=== PATIENT | male | born 1955 | race Caucasian/White ===

== ENCOUNTER 2018-11-22 13:45 | Outpatient (RCR) | payer OTHER, SELFPAY ==
--- NOTE | 2018-10-29 16:20 | PT.OIE ---
Current Diagnoses Strain of muscle, fascia and tendon of lower back, initial encounter (10/29/18) Past Medical History (Last Reviewed 10/25/18 @ 15:17 by Arian Varela MD) Essential hypertension (Chronic) Mixed hyperlipidemia (Chronic) Psoriasis (Chronic 10/27/05) Psoriatic arthritis (Chronic) Restless legs syndrome (Chronic 06/10/11) Oral herpes simplex infection (Chronic 05/17/16) Elevated LFTs (Chronic 06/10/11) Provider Visit Care Team Role Provider Type Arian Varela MD Primary Care Provider Physician Specialty: Internal Medicine Address: [address] [place] [address] Email: [email or web address] Forte PA-C Attending Provider Advanced Retail Area Manager Specialty: Medical Address: [address] [place] [address], [facility] Email: Physical Therapy Initial Evaluation PT-OP-A Visit Information Start: 10/29/18 12:57 Freq: Status: Active Protocol: Document 10/29/18 13:00 AMB (Rec: 10/29/18 15:46 AMB [email or web address]) Out-Patient Physical Therapy Visit Information Visit Information Visit Type Initial Evaluation Visit Start Time 13:00 Visit Stop Time 13:45 Total Visit Minutes 45 Visit Number 1 Evaluation Information Evaluation Date 10/29/18 PT-OP-B Current Condition Start: 10/29/18 12:57 Freq: Status: Active Protocol: Document 10/29/18 13:00 AMB (Rec: 10/29/18 15:46 AMB [email or web address]) Current Condition History of Current Condition Onset Date September 2018 Current Complaints R sided low back pain History of Current Condition The patient reports R sided low back pain after a busy day at home. He thinks the thing that may have caused it was trying to back up his motorcycle while the motorcycle was off and he was sitting on it. It has been slowly improving, but is still limiting his ability to bend forward. 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 He does not report he needs to lift anything heavy at work, but he has not been on his motorcycle since the pain started. Treatment Goals Patient/Caregiver Goals Decrease back pain, lean forward without pain Personal Factors Other Personal Factors That May Effect Bilateral rotator cuff surgery Therapy/Recovery history, umbilical hernia repair, PT-OP-C Subjective Start: 10/29/18 12:57 Freq: Status: Active Protocol: Document 10/29/18 13:00 AMB (Rec: 10/29/18 15:46 AMB [email or web address]) Patient Questionnaires Oswestry Low Back Index Oswestry Score 12 Oswestry Impairment 1 to 19% Impaired (Score 1-19) OP-PT Pain Assessment Pain Assessment Grid Paper Pain Assessment Grid Completed Yes Location Right Lower Back Pain Location Details sharp Intensity 2 PT-OP-J Posture/Palpation/Skin Start: 10/29/18 12:57 Freq: Status: Active Protocol: Document 10/29/18 13:00 AMB (Rec: 10/29/18 16:00 AMB [email or web address]) Palpation Assessment Location One Palpation Location R low back Palpation Details Tenderness at bilateral PSIS with palpation, worse on the R . Mild tenderness with PA at L5, but not in upper L spine. Tenderness at R paraspinals, but not QL. PT-OP-K Range of Motion Start: 10/29/18 12:57 Freq: Status: Active Protocol: Document 10/29/18 13:00 AMB (Rec: 10/29/18 16:00 AMB [email or web address]) Lumbar Spine Range of Motion Lumbar Spine Active Degrees Testing Position Standing Flexion 50 Extension 30 Lateral Flexion Left 15 Lateral Flexion Right 10 ROM Limitations Pain Hip Goniometric Range of Motion Hip ROM Limitations Comments Hip rotation limited bilaterally, hip flexion limited by pinching on the R, good hamstring flexibility bilaterally. PT-OP-L Special Tests Start: 10/29/18 12:57 Freq: Status: Active Protocol: Document 10/29/18 13:00 AMB (Rec: 10/29/18 16:00 AMB [email or web address]) Special Tests Lumbar Spine Special Tests Straight Leg Raise Test Results negative PT-OP-M Strength Start: 10/29/18 12:57 Freq: Status: Active Protocol: Document 10/29/18 13:00 AMB (Rec: 10/29/18 16:00 AMB [email or web address]) Hip Strength Hip Manual Muscle Testing Right Flexion (L2) 4+ Good+ Extension (S1) 4 Good Abduction 4+ Good+ Left Flexion (L2) 4+ Good+ Extension (S1) 4+ Good+ Abduction 5 Normal Knee Strength Knee Manual Muscle Testing Right Flexion (S2) 5 Normal Extension (L3) 5 Normal Left Flexion (S2) 5 Normal Extension (L3) 5 Normal PT-OP-Q Treatments Start: 18 12:57 Freq: Status: Active Protocol: Document 10/29/18 13:00 AMB (Rec: 10/29/18 16:00 AMB [email or web address]) Therapeutic Exercises Supine Exercises 1 Supine Exercise Name SLR Side right Reps/Minutes 2x10 Comments c TrA stabilization PT-OP-R Modalities Start: 10/29/18 12:57 Freq: Status: Active Protocol: Document 10/29/18 13:00 AMB (Rec: 10/29/18 16:00 AMB [email or web address]) Electric Stimulation Electric Stimulation Interferential Current (IFC) Body Location R low back Duration (Minutes) 15 PT-OP-T Assessment and Plan Start: 10/29/18 12:57 Freq: Status: Active Protocol: Document 10/29/18 13:00 AMB (Rec: 10/29/18 16:19 AMB [email or web address]) Physical Therapy Assessment Rehab Potential Rehabilitation Potential Good Evaluation Complexity Number of Personal Factors/Comorbidities 1-2 Number of Body Systems Impaired 3 Clinical Presentation at Evaluation Stable Impairments Impairments Functional Activities Pain Posture Goals Two Impairment Positional tolerance Short Term Goal (STG) The patient will stand at work for 30 minutes without back pain. STG Duration 4 weeks Sausage Maker Goal (LTG) The patient will sit at his desk for 1 hour without back pain. LTG Duration 8 weeks One Impairment Range of motion Short Term Goal (STG) The patient will bend forward to tie his shoe without back pain. STG Duration 4 weeks Nursing Home Goal (LTG) The patient will improve his lumbar sidebending to bilaterally 15 degrees without an increase in pain. LTG Duration 8 weeks Assessment Summary Assessment The patient presents with right lumbar strain. He is actually quite flexible in his muscles (he was a gymnast in high school), but his joints are stiff (he does have psoriatic arthritis). He has poor core control and will benefit from both manual therapy and core stabilization to help his back heal quickly . Physical Therapy Plan Frequency and Duration Frequency of Treatment 2x/Week Duration of Treatment 8 weeks Plan of Care Start Date 10/29/18 Plan of Care End Date 12/24/17 Therapeutic Interventions Therapeutic Interventions Gait Training Home Exercise Program Joint Mobilizations Manual Therapy Neuromuscular Re-education Self-Care/Home Management Soft Tissue Mobilization Therapeutic Activities Therapeutic Exercises Modalities Cold Pack/Ice Massage Electric Stimulation Hot Packs Ultrasound Next Visit Focus/Plan Next Note Type Treatment Note Next Visit Plan Progress core stabilization. manual therapy to progress spinal ROM.
--- NOTE | 2018-10-29 16:21 | PT.OPPOC ---
Current Diagnoses Strain of muscle, fascia and tendon of lower back, initial encounter (10/29/18) Provider Visit Care Team Role Provider Type Arian Varela MD Primary Care Provider Physician Specialty: Internal Medicine Address: [address] [place] [address], [id number] Email: [email or web address] Forte PA-C Attending Provider Advanced Welding Supervisor Specialty: Medical Address: [address] [place] [address], [id number] Email: Plan Of Care PT-OP-T Assessment and Plan Start: 10/29/18 12:57 Freq: Status: Active Protocol: Document 10/29/18 13:00 AMB (Rec: 10/29/18 16:19 AMB [email or web address]) Physical Therapy Assessment Rehab Potential Rehabilitation Potential Good Evaluation Complexity Number of Personal Factors/Comorbidities 1-2 Number of Body Systems Impaired 3 Clinical Presentation at Evaluation Stable Impairments Impairments Functional Activities Pain Posture Goals Two Impairment Positional tolerance Short Term Goal (STG) The patient will stand at work for 30 minutes without back pain. STG Duration 4 weeks Tea Leaf Reader Goal (LTG) The patient will sit at his desk for 1 hour without back pain. LTG Duration 8 weeks One Impairment Range of motion Short Term Goal (STG) The patient will bend forward to tie his shoe without back pain. STG Duration 4 weeks Tea Leaf Reader Goal (LTG) The patient will improve his lumbar sidebending to bilaterally 15 degrees without an increase in pain. LTG Duration 8 weeks Assessment Summary Assessment The patient presents with right lumbar strain. He is actually quite flexible in his muscles (he was a gymnast in high school), but his joints are stiff (he does have psoriatic arthritis). He has poor core control and will benefit from both manual therapy and core stabilization to help his back heal quickly . Physical Therapy Plan Frequency and Duration Frequency of Treatment 2x/Week Duration of Treatment 8 weeks Plan of Care Start Date 10/29/18 Plan of Care End Date 12/24/17 Therapeutic Interventions Therapeutic Interventions Gait Training Home Exercise Program Joint Mobilizations Manual Therapy Neuromuscular Re-education Self-Care/Home Management Soft Tissue Mobilization Therapeutic Activities Therapeutic Exercises Modalities Cold Pack/Ice Massage Electric Stimulation Hot Packs Ultrasound Next Visit Focus/Plan Next Note Type Treatment Note Next Visit Plan Progress core stabilization. manual therapy to progress spinal ROM. Plan of Care Dates Plan of Care Start Date 10/29/18 Plan of Care End Date 12/24/17 Please Sign and Return: I have reviewed this Plan of Care and certify that the skilled therapy services above are required to meet the patient?s needs. Physician Signature Date Printed Name and Credentials Clinical Instructor Signature Printed Name and Credentials
--- NOTE | 2018-11-08 12:57 | PT.OTN ---
Current Diagnoses Strain of muscle, fascia and tendon of lower back, initial encounter (11/08/18) Physical Therapy Treatment Note PT-OP-A Visit Information Start: 10/29/18 12:57 Freq: Status: Active Protocol: Document 11/08/18 10:30 AMB (Rec: 11/08/18 11:20 AMB [email or web address]) Out-Patient Physical Therapy Visit Information Visit Information Visit Type Treatment Note Visit Start Time 10:30 Visit Stop Time 11:15 Total Visit Minutes 45 Visit Number 2 PT-OP-B Current Condition Start: 10/29/18 12:57 Freq: Status: Active Protocol: Document 10/29/18 13:00 AMB (Rec: 10/29/18 15:46 AMB [email or web address]) Current Condition History of Current Condition Onset Date September 2018 Current Complaints R sided low back pain History of Current Condition The patient reports R sided low back pain after a busy day at home. He thinks the thing that may have caused it was trying to back up his motorcycle while the motorcycle was off and he was sitting on it. It has been slowly improving, but is still limiting his ability to bend forward. 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 He does not report he needs to lift anything heavy at work, but he has not been on his motorcycle since the pain started. Treatment Goals Patient/Caregiver Goals Decrease back pain, lean forward without pain Personal Factors Other Personal Factors That May Effect Bilateral rotator cuff surgery Therapy/Recovery history, umbilical hernia repair, PT-OP-C Subjective Start: 10/29/18 12:57 Freq: Status: Active Protocol: Document 11/08/18 10:30 AMB (Rec: 11/08/18 11:20 AMB [id number]) OP-PT Subjective Patient Comments Patient Comments The patient reports he is feeling a bit better, not walking as stiffly, but still can feel it with walking. R lateral hip pain has been a long standing issue. PT-OP-J Posture/Palpation/Skin Start: 10/29/18 12:57 Freq: Status: Active Protocol: Document 10/29/18 13:00 AMB (Rec: 10/29/18 16:00 AMB [email or web address]) Palpation Assessment Location One Palpation Location R low back Palpation Details Tenderness at bilateral PSIS with palpation, worse on the R . Mild tenderness with PA at L5, but not in upper L spine. Tenderness at R paraspinals, but not QL. PT-OP-K Range of Motion Start: 10/29/18 12:57 Freq: Status: Active Protocol: Document 10/29/18 13:00 AMB (Rec: 10/29/18 16:00 AMB [email or web address]) Lumbar Spine Range of Motion Lumbar Spine Active Degrees Testing Position Standing Flexion 50 Extension 30 Lateral Flexion Left 15 Lateral Flexion Right 10 ROM Limitations Pain Hip Goniometric Range of Motion Hip ROM Limitations Comments Hip rotation limited bilaterally, hip flexion limited by pinching on the R, good hamstring flexibility bilaterally. PT-OP-L Special Tests Start: 10/29/18 12:57 Freq: Status: Active Protocol: Document 10/29/18 13:00 AMB (Rec: 10/29/18 16:00 AMB [email or web address]) Special Tests Lumbar Spine Special Tests Straight Leg Raise Test Results negative PT-OP-M Strength Start: 10/29/18 12:57 Freq: Status: Active Protocol: Document 10/29/18 13:00 AMB (Rec: 10/29/18 16:00 AMB [email or web address]) Hip Strength Hip Manual Muscle Testing Right Flexion (L2) 4+ Good+ Extension (S1) 4 Good Abduction 4+ Good+ Left Flexion (L2) 4+ Good+ Extension (S1) 4+ Good+ Abduction 5 Normal Knee Strength Knee Manual Muscle Testing Right Flexion (S2) 5 Normal Extension (L3) 5 Normal Left Flexion (S2) 5 Normal Extension (L3) 5 Normal PT-OP-Q Treatments Start: 10/29/18 12:57 Freq: Status: Active Protocol: Document 11/08/18 10:30 AMB (Rec: 11/08/18 12:52 AMB [email or web address]) Therapeutic Exercises Supine Exercises 3 Supine Exercise Name double knee to chest with [place] ball Reps/Minutes 10 2 Supine Exercise Name LTR Comments 10 1 Supine Exercise Name SLR Side right Reps/Minutes 2x10 Comments c TrA stabilization Other Exercises 1 Other Exercise Name thread the needle Reps/Minutes 10 Manual Therapy Treatment Soft Tissue Mobilization 1 Body Location R QL, lumbar paraspinals Mobilization Type Manual Lymphatic Drainage Myofascial Release PT-OP-R Modalities Start: 10/29/18 12:57 Freq: Status: Active Protocol: Document 10/29/18 13:00 AMB (Rec: 10/29/18 16:00 AMB [email or web address]) Electric Stimulation Electric Stimulation Interferential Current (IFC) Body Location R low back Duration (Minutes) 15 PT-OP-T Assessment and Plan Start: 10/29/18 12:57 Freq: Status: Active Protocol: Document 11/08/18 10:30 AMB (Rec: 11/08/18 12:52 AMB [email or web address]) Physical Therapy Assessment Assessment Summary Assessment The patient continues to have right sided pain worse with rotation and continues to need to stabilize his core, but is improving with walking. Physical Therapy Plan Next Visit Focus/Plan Next Note Type Treatment Note Next Visit Plan Progress core stabilization. manual therapy to progress spinal ROM, especially rotation
--- NOTE | 2018-11-15 16:03 | PT.OTN ---
Current Diagnoses Strain of muscle, fascia and tendon of lower back, initial encounter (11/15/18) Physical Therapy Treatment Note PT-OP-A Visit Information Start: 10/29/18 12:57 Freq: Status: Active Protocol: Document 11/15/18 13:45 AMB (Rec: 11/15/18 14:39 AMB [id number]) Out-Patient Physical Therapy Visit Information Visit Information Visit Type Treatment Note Visit Start Time 13:45 Visit Stop Time 14:30 Total Visit Minutes 45 Visit Number 3 PT-OP-B Current Condition Start: 10/29/18 12:57 Freq: Status: Active Protocol: Document 10/29/18 13:00 AMB (Rec: 10/29/18 15:46 AMB [email or web address]) Current Condition History of Current Condition Onset Date September 2018 Current Complaints R sided low back pain History of Current Condition The patient reports R sided low back pain after a busy day at home. He thinks the thing that may have caused it was trying to back up his motorcycle while the motorcycle was off and he was sitting on it. It has been slowly improving, but is still limiting his ability to bend forward. 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 He does not report he needs to lift anything heavy at work, but he has not been on his motorcycle since the pain started. Treatment Goals Patient/Caregiver Goals Decrease back pain, lean forward without pain Personal Factors Other Personal Factors That May Effect Bilateral rotator cuff surgery Therapy/Recovery history, umbilical hernia repair, PT-OP-C Subjective Start: 10/29/18 12:57 Freq: Status: Active Protocol: Document 11/15/18 13:45 AMB (Rec: 11/15/18 14:39 AMB [id number]) OP-PT Subjective Patient Comments Patient Comments Pt feeling quite good, more loose. Still not equal to the left though. PT-OP-J Posture/Palpation/Skin Start: 10/29/18 12:57 Freq: Status: Active Protocol: Document 10/29/18 13:00 AMB (Rec: 10/29/18 16:00 AMB [email or web address]) Palpation Assessment Location One Palpation Location R low back Palpation Details Tenderness at bilateral PSIS with palpation, worse on the R . Mild tenderness with PA at L5, but not in upper L spine. Tenderness at R paraspinals, but not QL. PT-OP-K Range of Motion Start: 10/29/18 12:57 Freq: Status: Active Protocol: Document 10/29/18 13:00 AMB (Rec: 10/29/18 16:00 AMB [email or web address]) Lumbar Spine Range of Motion Lumbar Spine Active Degrees Testing Position Standing Flexion 50 Extension 30 Lateral Flexion Left 15 Lateral Flexion Right 10 ROM Limitations Pain Hip Goniometric Range of Motion Hip ROM Limitations Comments Hip rotation limited bilaterally, hip flexion limited by pinching on the R, good hamstring flexibility bilaterally. PT-OP-L Special Tests Start: 10/29/18 12:57 Freq: Status: Active Protocol: Document 10/29/18 13:00 AMB (Rec: 10/29/18 16:00 AMB [email or web address]) Special Tests Lumbar Spine Special Tests Straight Leg Raise Test Results negative PT-OP-M Strength Start: 10/29/18 12:57 Freq: Status: Active Protocol: Document 10/29/18 13:00 AMB (Rec: 10/29/18 16:00 AMB [email or web address]) Hip Strength Hip Manual Muscle Testing Right Flexion (L2) 4+ Good+ Extension (S1) 4 Good Abduction 4+ Good+ Left Flexion (L2) 4+ Good+ Extension (S1) 4+ Good+ Abduction 5 Normal Knee Strength Knee Manual Muscle Testing Right Flexion (S2) 5 Normal Extension (L3) 5 Normal Left Flexion (S2) 5 Normal Extension (L3) 5 Normal PT-OP-Q Treatments Start: 10/29/18 12:57 Freq: Status: Active Protocol: Document 11/15/18 13:45 AMB (Rec: 11/15/18 16:03 AMB [email or web address]) Therapeutic Exercises Supine Exercises 3 Supine Exercise Name double knee to chest with [place] ball Reps/Minutes 10 2 Supine Exercise Name LTR Comments 10 1 Supine Exercise Name SLR Side right Reps/Minutes 2x10 Comments c TrA stabilization Standing Exercises 2 Standing Exercise Name lateral lunges Reps/Minutes 10 1 Standing Exercise Name forward lunges with trunk rotation Reps/Minutes 10 Other Exercises 3 Other Exercise Name modified kneeling plank Reps/Minutes 30x2 2 Other Exercise Name side plank Reps/Minutes 10x2 1 Other Exercise Name thread the needle Reps/Minutes 10 Manual Therapy Treatment Soft Tissue Mobilization 1 Body Location R QL, lumbar paraspinals Mobilization Type Manual Lymphatic Drainage Myofascial Release PT-OP-R Modalities Start: 10/29/18 12:57 Freq: Status: Active Protocol: Document 10/29/18 13:00 AMB (Rec: 10/29/18 16:00 AMB [email or web address]) Electric Stimulation Electric Stimulation Interferential Current (IFC) Body Location R low back Duration (Minutes) 15 PT-OP-T Assessment and Plan Start: 10/29/18 12:57 Freq: Status: Active Protocol: Document 11/15/18 13:45 AMB (Rec: 11/15/18 16:03 AMB [email or web address]) Physical Therapy Assessment Assessment Summary Assessment Pt with improved trunk rotation with walking. Pt could benefit from overall improved core strength, but tolerated modified planks well . Shoulders were bothered with side planks. Physical Therapy Plan Next Visit Focus/Plan Next Note Type Treatment Note Next Visit Plan Progress core stabilization. manual therapy to progress spinal ROM, especially rotation
--- NOTE | 2018-11-22 14:44 | PT.OTN ---
Current Diagnoses Strain of muscle, fascia and tendon of lower back, initial encounter (11/22/18) Physical Therapy Treatment Note PT-OP-A Visit Information Start: 10/29/18 12:57 Freq: Status: Active Protocol: Document 11/22/18 13:45 AMB (Rec: 11/22/18 14:44 AMB [email or web address]) Out-Patient Physical Therapy Visit Information Visit Information Visit Type Treatment Note Visit Start Time 13:45 Visit Stop Time 14:30 Total Visit Minutes 45 Visit Number 3 PT-OP-B Current Condition Start: 10/29/18 12:57 Freq: Status: Active Protocol: Document 10/29/18 13:00 AMB (Rec: 10/29/18 15:46 AMB [email or web address]) Current Condition History of Current Condition Onset Date September 2018 Current Complaints R sided low back pain History of Current Condition The patient reports R sided low back pain after a busy day at home. He thinks the thing that may have caused it was trying to back up his motorcycle while the motorcycle was off and he was sitting on it. It has been slowly improving, but is still limiting his ability to bend forward. 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 He does not report he needs to lift anything heavy at work, but he has not been on his motorcycle since the pain started. Treatment Goals Patient/Caregiver Goals Decrease back pain, lean forward without pain Personal Factors Other Personal Factors That May Effect Bilateral rotator cuff surgery Therapy/Recovery history, umbilical hernia repair, PT-OP-C Subjective Start: 10/29/18 12:57 Freq: Status: Active Protocol: Document 11/22/18 13:45 AMB (Rec: 11/22/18 14:44 AMB [email or web address]) OP-PT Subjective Patient Comments Patient Comments Pt is doing well, he thinks he is about 95% better. Still doing exercises. PT-OP-J Posture/Palpation/Skin Start: 10/29/18 12:57 Freq: Status: Active Protocol: Document 10/29/18 13:00 AMB (Rec: 10/29/18 16:00 AMB [email or web address]) Palpation Assessment Location One Palpation Location R low back Palpation Details Tenderness at bilateral PSIS with palpation, worse on the R . Mild tenderness with PA at L5, but not in upper L spine. Tenderness at R paraspinals, but not QL. PT-OP-K Range of Motion Start: 10/29/18 12:57 Freq: Status: Active Protocol: Document 11/22/18 13:45 AMB (Rec: 11/22/18 14:24 AMB [id number]) Lumbar Spine Range of Motion Lumbar Spine Active Degrees Lateral Flexion Left 20 Lateral Flexion Right 15 PT-OP-L Special Tests Start: 10/29/18 12:57 Freq: Status: Active Protocol: Document 10/29/18 13:00 AMB (Rec: 10/29/18 16:00 AMB [email or web address]) Special Tests Lumbar Spine Special Tests Straight Leg Raise Test Results negative PT-OP-M Strength Start: 10/29/18 12:57 Freq: Status: Active Protocol: Document 10/29/18 13:00 AMB (Rec: 10/29/18 16:00 AMB [email or web address]) Hip Strength Hip Manual Muscle Testing Right Flexion (L2) 4+ Good+ Extension (S1) 4 Good Abduction 4+ Good+ Left Flexion (L2) 4+ Good+ Extension (S1) 4+ Good+ Abduction 5 Normal Knee Strength Knee Manual Muscle Testing Right Flexion (S2) 5 Normal Extension (L3) 5 Normal Left Flexion (S2) 5 Normal Extension (L3) 5 Normal PT-OP-Q Treatments Start: 10/29/18 12:57 Freq: Status: Active Protocol: Document 11/22/18 13:45 AMB (Rec: 11/22/18 14:44 AMB [email or web address]) Therapeutic Exercises Supine Exercises 3 Supine Exercise Name double knee to chest with kuwaiti ball Reps/Minutes 10 2 Supine Exercise Name LTR Comments 10 Other Exercises 1 Other Exercise Name thread the needle Reps/Minutes 10 Manual Therapy Treatment Soft Tissue Mobilization 1 Body Location R QL, lumbar paraspinals Mobilization Type Manual Lymphatic Drainage Myofascial Release PT-OP-R Modalities Start: 10/29/18 12:57 Freq: Status: Active Protocol: Document 10/29/18 13:00 AMB (Rec: 10/29/18 16:00 AMB [email or web address]) Electric Stimulation Electric Stimulation Interferential Current (IFC) Body Location R low back Duration (Minutes) 15 PT-OP-T Assessment and Plan Start: 10/29/18 12:57 Freq: Status: Active Protocol: Document 11/22/18 13:45 AMB (Rec: 11/22/18 14:44 AMB [email or web address]) Physical Therapy Assessment Goals Two Impairment Positional tolerance Short Term Goal (STG) The patient will stand at work for 30 minutes without back pain. STG Duration MET Assisted Goal (LTG) The patient will sit at his desk for 1 hour without back pain. LTG Duration MET One Impairment Range of motion Short Term Goal (STG) The patient will bend forward to tie his shoe without back pain. STG Duration 4 weeks Glass Bead Maker Goal (LTG) The patient will improve his lumbar sidebending to bilaterally 15 degrees without an increase in pain. LTG Duration 8 weeks Assessment Summary Assessment Pt is walking much better, slight tightness on R at low lumbar. Should continue withe HEP. Will see in 2 weeks. Physical Therapy Plan Next Visit Focus/Plan Next Note Type Treatment Note Next Visit Plan Progress core stabilization. manual therapy to progress spinal ROM, especially rotation
--- NOTE | 2019-01-25 12:56 | PT.OPDS ---
Current Diagnoses Strain of muscle, fascia and tendon of lower back, initial encounter (11/22/18) Provider Visit Care Team Role Provider Type Arian Varela MD Primary Care Provider Physician Specialty: Internal Medicine Address: [address] [place] [address], [phone] Email: [email or web address] Florentin Forte PA-C Attending Provider Advanced [employer] Librarian Specialty: Medical Address: [address] [place] [address], [id number] Email: Visit Number Visit Number 3 Discharge Summary PT-OP-B Current Condition Start: 10/29/18 12:57 Freq: Status: Active Protocol: Document 10/29/18 13:00 AMB (Rec: 10/29/18 15:46 AMB [email or web address]) Current Condition History of Current Condition Onset Date September 2018 Current Complaints R sided low back pain History of Current Condition The patient reports R sided low back pain after a busy day at home. He thinks the thing that may have caused it was trying to back up his motorcycle while the motorcycle was off and he was sitting on it. It has been slowly improving, but is still limiting his ability to bend forward. 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 He does not report he needs to lift anything heavy at work, but he has not been on his motorcycle since the pain started. Treatment Goals Patient/Caregiver Goals Decrease back pain, lean forward without pain Personal Factors Other Personal Factors That May Effect Bilateral rotator cuff surgery Therapy/Recovery history, umbilical hernia repair, PT-OP-C Subjective Start: 10/29/18 12:57 Freq: Status: Active Protocol: Document 11/22/18 13:45 AMB (Rec: 11/22/18 14:44 AMB [email or web address]) OP-PT Subjective Patient Comments Patient Comments Pt is doing well, he thinks he is about 95% better. Still doing exercises. PT-OP-J Posture/Palpation/Skin Start: 10/29/18 12:57 Freq: Status: Active Protocol: Document 10/29/18 13:00 AMB (Rec: 10/29/18 16:00 AMB [email or web address]) Palpation Assessment Location One Palpation Location R low back Palpation Details Tenderness at bilateral PSIS with palpation, worse on the R . Mild tenderness with PA at L5, but not in upper L spine. Tenderness at R paraspinals, but not QL. PT-OP-K Range of Motion Start: 10/29/18 12:57 Freq: Status: Active Protocol: Document 11/22/18 13:45 AMB (Rec: 11/22/18 14:24 AMB [id number]) Lumbar Spine Range of Motion Lumbar Spine Active Degrees Lateral Flexion Left 20 Lateral Flexion Right 15 PT-OP-L Special Tests Start: 10/29/18 12:57 Freq: Status: Active Protocol: Document 10/29/18 13:00 AMB (Rec: 10/29/18 16:00 AMB [email or web address]) Special Tests Lumbar Spine Special Tests Straight Leg Raise Test Results negative PT-OP-M Strength Start: 10/29/18 12:57 Freq: Status: Active Protocol: Document 10/29/18 13:00 AMB (Rec: 10/29/18 16:00 AMB [email or web address]) Hip Strength Hip Manual Muscle Testing Right Flexion (L2) 4+ Good+ Extension (S1) 4 Good Abduction 4+ Good+ Left Flexion (L2) 4+ Good+ Extension (S1) 4+ Good+ Abduction 5 Normal Knee Strength Knee Manual Muscle Testing Right Flexion (S2) 5 Normal Extension (L3) 5 Normal Left Flexion (S2) 5 Normal Extension (L3) 5 Normal PT-OP-T Assessment and Plan Start: 10/29/18 12:57 Freq: Status: Active Protocol: Document 01/25/19 12:54 AMB (Rec: 01/25/19 12:56 AMB [email or web address]) Physical Therapy Assessment Goals Two Impairment Positional tolerance Short Term Goal (STG) The patient will stand at work for 30 minutes without back pain. STG Duration MET Longterm Goal (LTG) The patient will sit at his desk for 1 hour without back pain. LTG Duration MET One Impairment Range of motion Short Term Goal (STG) The patient will bend forward to tie his shoe without back pain. STG Duration 4 weeks Biodiesel Division Manager Goal (LTG) The patient will improve his lumbar sidebending to bilaterally 15 degrees without an increase in pain. LTG Duration 8 weeks Assessment Summary Assessment Brian was seen for 4 visits from October to November. At his last visit he was feeling quite good, with good resolution of his pain, but wanted to make a couple more appointments to make sure he had a full resolution of symptoms. He has since cancelled those appointments, so he is discharged at this time due to no longer needing physical therapy.
== END 2018-11-23 11:57 ==
LOC: PHYS 13:45
PROVIDERS: PCP Internal Medicine; Visit Provider Physician Assistant
DX: S39.012A Strain of muscle, fascia and tendon of lower back, initial encounter (principal)
CPT/HCPCS: 97014; 97110; 97140; 97161; G0283

== ENCOUNTER → 2018-11-27 08:52 | Outpatient (CLI) | payer OTHER, SELFPAY ==
[2018-11-27 09:59] LABS: Add Manual Diff / Slide Review NO; Basophils Absolute Auto 100 /uL (0-100); Basophils Percent Auto 1.1 % (0-2); Eosinophils Absolute Auto 200 /uL (0-450); Eosinophils Percent Auto 2.9 % (2-4); Hematocrit 44.8 % (41-53); Hemoglobin 15.4 g/dL (13.5-17.5); Lymphocytes Absolute Auto 2100 /uL (1100-4500); Lymphocytes Percent Auto 36.2 % (25-40); Mean Corpuscular HGB Conc 34.5 % (30-36); Mean Corpuscular Hemoglobin 36.5 PG (26-34); Mean Corpuscular Volume 105.7 fL (80-100); Monocytes Absolute Auto 1000 /uL (0-900); Neutrophils Absolute Auto 2400 /uL (1500-7000); Neutrophils Percent Auto 41.8 % (50-75); Platelet Count 197 X10^3/uL (150-400); Red Blood Cell Count 4.24 X10^6/uL (4.5-5.9); Red Cell Distribution Width 12.5 % (11.6-14.8); White Blood Cell Count 5.8 X10^3/uL (4.5-11.0)
[2018-11-27 10:18] LABS: Alanine Aminotransferase 115 IU/L (21-72); Albumin 4.6 g/dL (3.5-5.0); Albumin Globulin Ratio 1.5 (1.0-2.8); Alkaline Phosphatase 52 U/L (38-126); Aspartate Aminotransferase 72 IU/L (17-59); BUN Creatinine Ratio 17.8 (6-22); Bilirubin Total 0.5 mg/dL (0.2-1.3); Blood Urea Nitrogen 16 mg/dL (9-20); Calcium 9.5 mg/dL (8.4-10.2); Carbon Dioxide 24 mmol/L (22-32); Chloride 105 mmol/L (98-107); Estimated Glomerular Filt Rate > 60.0 mL/min (>60); Globulin 3.1 g/dL (1.7-4.1); Glucose 96 mg/dL (80-110); HEMOLYSIS < 15 (0-50); Potassium 3.8 mmol/L (3.4-5.1); Sodium 141 mmol/L (137-145); Total Protein 7.7 g/dL (6.3-8.2)
[2018-11-27 10:49] LABS: Prostate Specific Antigen Scrn 0.467 ng/mL (0.1-4.0)
== END ==
PROVIDERS: PCP Internal Medicine; Visit Provider Internal Medicine
DX: E78.2 Mixed hyperlipidemia (principal); I10 Essential (primary) hypertension; Z12.5 Encounter for screening for malignant neoplasm of prostate
CPT/HCPCS: 36415; 80053; 85025; G0103

== ENCOUNTER 2019-07-02 14:45 | Day surgery (SDC) | payer OTHER, MEDICARE, SELFPAY ==
[2019-07-02] VITALS (7 sets, daily range): BP systolic 102–131; BP diastolic 62–81; PULSE 76–100; RESP 12–20; TEMP 36.6–37.1; O2SAT 97–99; BMI 32.3
--- NOTE | 2019-07-02 | PATH_ITS ---
[facility] Accession Number: [id number] . 01 Material submitted: . PART A: colon - TRANSVERSE COLON POLYP PART B: colon - CECAL POLYP BIOPSY X2 PART C: rectum - RECTAL BIOPSY . 02 Diagnosis: A. Transverse Colon, Polyp: Superficial fragments of colorectal mucosa, some with adenomatous features, please see comment. . B. Cecal Polyp, Biopsy X2: Multiple (approximately 7) fragments of tubular adenoma. . C. Rectal Biopsy: Hyperplastic polyp. . BFI/07/04/2019 . 02 Comment: A. No intact polyp is identified. Scant glandular fragments demonstrate possible adenomatous features; electrocautery artifact is focally obscuring. . 02 Electronically signed: . Melissa Aquino MD, Pathologist NPI- [id number] . 01 Gross description: . Part A: TRANSVERSE COLON POLYP: Received in formalin are multiple fragment(s) of arellano, soft tissue measuring 0.1 x 0.1 x 0.1 cm in aggregate submitted entirely in 1 cassette(s) Part B: CECAL POLYP BIOPSY X2: Received in formalin are multiple fragment(s) of arellano, soft tissue measuring 1.5 x 1.0 x 0.2 cm in aggregate submitted entirely in 1 cassette(s) Part C: RECTAL BIOPSY: Received in formalin is 1 fragment(s) of arellano, soft tissue measuring 0.5 x 0.3 x 0.2 cm submitted entirely in 1 cassette(s) /CKI /CKI . 02 Pathologist provided ICD-10: K63.5 . 02 CPT . 573689, [id number], [id number] Performed at: [address] [place] [address] [address], [place], [place] [id number] MD Lj Cotton MD Phone: [phone] Performed at: 02 [facility] [address] [place] [id number] MD Jennifer Hilton MD Phone: [phone]
[2019-07-02] MEDS: SODIUM CHLORIDE 0.9% 1,000 ML 200 ML IV (15:00)
--- NOTE | 2019-07-02 16:40 | PM.HP.1 ---
History of Present Illness Date Patient Seen: 07/02/19 Time Patient Seen: 16:40 Chief complaint: [address] SCREENING COLONOSCOPY Narrative: 64-year-old man presents for regular screening colonoscopy. Last 10 years ago No family history of colorectal cancer no personal history of colon polyps He thinks it is possible his sister was recently diagnosed with colon polyps Patient History Family & Social History Social History: household members spouse lives independently Yes caregiver/support person No Tobacco & Substance use: Smoking Status Former smoker alcohol intake current Meds Home Medications Medication Instructions Recorded Confirmed Type Fish Oil (#FISH OIL) 1 iu PO Q DAY #0 06/10/11 07/02/19 History ACETAMINOPHEN (TYLENOL ARTHRITIS) 1,300 mg PO QDAY #0 06/27/13 07/02/19 History Enbrel 25 mg SC WEEKLY #0 06/27/13 07/02/19 History fluticasone propionate 0.05 mg INH QDAY #1 spr 05/11/17 07/02/19 Rx cetirizine 10 mg tablet 10 mg PO DAILY 04/23/18 07/02/19 History amlodipine [Norvasc] 10 mg PO Q DAY #90 tab 07/25/18 04/25/19 Rx pravastatin [Pravachol] 80 mg PO QDAY #90 tab 09/20/18 07/02/19 Rx valacyclovir 1 gram tablet 1,000 mg PO DAILY #60 tab 11/19/18 04/25/19 Rx triamterene-hydrochlorothiazid 37 mg PO Q DAY 07/02/19 07/02/19 History Allergies Allergy/AdvReac Type Severity Reaction Status Date / Time Sulfa (Sulfonamide Allergy Severe BLOTCHY Verified 07/02/19 15:21 Antibiotics) SKIN [SULFA (SULFONAMIDE ANTIBIOTICS)] lisinopril [LISINOPRIL] AdvReac Severe INCREASED Verified 07/02/19 15:21 SERUM CREAT citalopram [CITALOPRAM] AdvReac Intermediate dreams/trem Verified 07/02/19 15:21 or/stuff Review of Systems Constitutional Constitutional: Denies fever(s) Eyes Eyes: Denies bulging eyes ENT Ears, Nose, Mouth, and Throat: No lip swelling Cardiovascular Cardiovascular: Denies generalize swelling Respiratory Respiratory: Denies stridor Gastrointestinal Gastrointestinal: Denies coffee ground emesis Musculoskeletal Musculoskeletal: Denies loss of height Integumentary/Breasts Skin/Breast: Denies wounds Neurologic Neurologic: Denies abnormal speech and Denies confusion Psychiatric Psychiatric: Denies confusion Endocrine Endocrine: Denies deepening of the voice Hematologic/Lymphatic Hematologic/Lymphatic: Denies lymphadenopathy Allergic/Immunologic Allergic/Immunologic: Denies lip swelling Exam Vital Signs (past 8 hours): - 07/02/19 15:11 Temperature 98.8 F Pulse Rate 100 H Respiratory Rate 20 Blood Pressure 131/81 Pulse Oximetry 97 Oxygen Delivery Method Room Air Narrative Exam Narrative: Abdomen soft nontender nondistended Const General: cooperative and healthy appearing Orientation: alert HENMT Head: normal to inspection Nose: nares normal Mouth: oral mucosae normal and lip normal Eyes Eyelids: eyelids normal Conjunctivae: conjunctivae normal Sclera: sclerae normal Neck Neck: supple and other (No thyromegally) Chest Chest: other (LCTAB , regular respiratory effort) Cardio Rhythm: regular rhythm Heart Sounds: S1 normal, S2 normal, no gallops, no murmurs and no rubs Skin General: no rashes or lesions noted Neuro General: alert and awake Psych Appearance: grossly normal Affect: normal affect Assessment & Plan Assessment & Plan narrative: 64-year-old man here for screening colonoscopy 10 years after last Risks and benefits of procedure discussed Risks of bleeding, , perforation, hypoxia, missed lesion all discussed All questions answered Patient ready to proceed
[2019-07-02] MEDS: GLUCAGON,HUMAN RECOMBINANT 1 MG/ML VIAL IV (17:56)
[2019-07-02] MEDS: fentaNYL 250 MCG/5 ML INJ IV (17:57)
[2019-07-02] MEDS: MIDAZOLAM 5 MG/5 ML VIAL IV (17:57)
--- NOTE | 2019-07-02 18:22 | PM.OP.ENDO ---
Operative Date/Time/Diagnoses Date of procedure: 07/02/19 Time of procedure: 18:22 Pre-op diagnosis: Screening colonoscopy Post-op diagnosis: same Procedure & Clinicians Study performed: Screening colonoscopy -complete Hot snare polypectomy x1 transverse colon Cecal polypectomy with cold biopsy forceps x2 Rectal polypectomy with cold biopsy forceps x1 Same procedure as scheduled: Yes Indications: 64-year-old man 10 years from a screening colonoscopy, family history of colon polyps Surgeon: Justin Salazar Procedure Notes SCOAP/Timeout: Complete Procedure in detail: Patient was brought to the endoscopy suite a time-out was completed. He was sedated over the course of the entire procedure which was lengthy with 14 mg of midazolam and 250 mcg fentany. A digital rectal exam was performed without incident. Was substantial difficulty the colonoscope was advanced through the numerous and tight folds of the colon to the cecum. The colon itself was quite redundant and at least 6 if reductions in the scope back into the left colon and the advancements were required to obtain adequate scope length to reach the cecum -in addition multiple positions were required to navigate through several tight turns. The cecum was significantly spasmed making initial identification the appendiceal orifice and ileocecal valve. Patient was given glucagon 1 mg -this improved may ultimately the appendiceal orifice and ileocecal valve were identified definitively in without question. There were 2 sessile mass polyps in close proximity to the appendiceal orifice 1 was moderately large -I was unable to get good positioning to allow for snare polypectomy as a consequence both were removed piecemeal the Jumbo biopsy forcep. Upon withdrawal an additional snare polypectomy was performed on the transverse colon polyp Diverticulosis was identified in the transverse and sigmoid colon There was a small rectal polyp removed Jumbo biopsy forceps as well Upon retroflexion no additional lesions were identified Prep was adequate Scope withdrawal time: 84 Sedation minutes: 25 Specimen(s): other (Cecal polyps x2, transverse colon polyp, rectal polyp) Complications: none Impression: Cecal polyps x2 in close proximity to appendiceal orifice -removed piecemeal, if adenomatous will need repeat colonoscopy within 1 year to ensure completely removed Transverse colon polyp x1 Rectal colon polyp -suspect hyperplastic Recommendations: Other recommendation (Follow up pathology results to determine interval) Plan for aftercare: PACU then home Follow up: as needed Disposition: PACU
== END 2019-07-02 19:14 | disposition home or self-care (01) ==
PROVIDERS: PCP Internal Medicine; Visit Provider Surgery
PROC: 0DJD8ZZ Inspection of Lower Intestinal Tract, Via Natural or Artificial Opening Endoscopic (ICD-10-PCS; CPT 45378; principal; 2019-07-02 16:00)
DX: Z12.11 Encounter for screening for malignant neoplasm of colon (principal); D12.0 Benign neoplasm of cecum; K63.5 Polyp of colon; K62.1 Rectal polyp; K57.30 Diverticulosis of large intestine without perforation or abscess without bleeding; Z83.71 Family history of colonic polyps; Z87.891 Personal history of nicotine dependence
CPT/HCPCS: 45385; 45380; 99152; 99153; J1610; J2250; J3010

== ENCOUNTER → 2019-10-30 16:05 | Outpatient (CLI) | payer OTHER, SELFPAY ==
[2019-10-30 16:22] LABS: Add Manual Diff / Slide Review NO; Basophils Absolute Auto 100 /uL (0-100); Basophils Percent Auto 0.9 % (0-2); Eosinophils Absolute Auto 100 /uL (0-450); Eosinophils Percent Auto 1.9 % (2-4); Hematocrit 40.4 % (41-53); Hemoglobin 14.3 g/dL (13.5-17.5); Lymphocytes Absolute Auto 1800 /uL (1100-4500); Lymphocytes Percent Auto 25.5 % (25-40); Mean Corpuscular HGB Conc 35.4 % (30-36); Mean Corpuscular Hemoglobin 33.5 PG (26-34); Mean Corpuscular Volume 94.8 fL (80-100); Monocytes Absolute Auto 1000 /uL (0-900); Monocytes Percent Auto 14.1 % (3-14); Neutrophils Absolute Auto 4000 /uL (1500-7000); Neutrophils Percent Auto 57.6 % (50-75); Platelet Count 165 X10^3/uL (150-400); Red Blood Cell Count 4.26 X10^6/uL (4.5-5.9); Red Cell Distribution Width 13.2 % (11.6-14.8); White Blood Cell Count 6.9 X10^3/uL (4.5-11.0)
[2019-10-30 16:40] LABS: Erythrocyte Sedimentation Rate 19 MM/HR (0-15)
[2019-10-30 17:00] LABS: Alanine Aminotransferase 43 IU/L (<50); Albumin 4.8 g/dL (3.5-5.0); Albumin Globulin Ratio 1.8 (1.0-2.8); Alkaline Phosphatase 60 U/L (38-126); Aspartate Aminotransferase 48 IU/L (17-59); Bilirubin Total 0.6 mg/dL (0.2-1.3); Blood Urea Nitrogen 22 mg/dL (9-20); C-Reactive Protein Quant 0.8 mg/dL (<1.0); Calcium 9.9 mg/dL (8.4-10.2); Carbon Dioxide 22 mmol/L (22-32); Chloride 105 mmol/L (98-107); Estimated Glomerular Filt Rate > 60.0 mL/min (>60); Globulin 2.7 g/dL (1.7-4.1); Glucose 93 mg/dL (80-110); HEMOLYSIS < 15 (0-50); Potassium 4.1 mmol/L (3.4-5.1); Sodium 141 mmol/L (137-145); Total Protein 7.5 g/dL (6.3-8.2)
== END ==
PROVIDERS: Family Provider Physician Assistant Medical; PCP Internal Medicine; Visit Provider Physician Assistant Medical
DX: L40.50 Arthropathic psoriasis, unspecified (principal); B35.1 Tinea unguium
CPT/HCPCS: 36415; 80053; 85025; 85651; 86140

== ENCOUNTER → 2019-12-17 07:43 | Outpatient (CLI) | payer OTHER, SELFPAY ==
[2019-12-17 08:20] LABS: Add Manual Diff / Slide Review NO; Basophils Absolute Auto 100 /uL (0-100); Basophils Percent Auto 1.1 % (0-2); Eosinophils Absolute Auto 200 /uL (0-450); Eosinophils Percent Auto 3.4 % (2-4); Hematocrit 41.2 % (41-53); Hemoglobin 14.2 g/dL (13.5-17.5); Lymphocytes Absolute Auto 1900 /uL (1100-4500); Lymphocytes Percent Auto 37.5 % (25-40); Mean Corpuscular HGB Conc 34.5 % (30-36); Mean Corpuscular Hemoglobin 33.2 PG (26-34); Mean Corpuscular Volume 96.1 fL (80-100); Monocytes Absolute Auto 700 /uL (0-900); Monocytes Percent Auto 12.9 % (3-14); Neutrophils Absolute Auto 2300 /uL (1500-7000); Neutrophils Percent Auto 45.1 % (50-75); Platelet Count 171 X10^3/uL (150-400); Red Blood Cell Count 4.29 X10^6/uL (4.5-5.9); Red Cell Distribution Width 12.8 % (11.6-14.8); White Blood Cell Count 5.1 X10^3/uL (4.5-11.0)
[2019-12-17 08:39] LABS: Alanine Aminotransferase 26 IU/L (<50); Albumin 4.7 g/dL (3.5-5.0); Albumin Globulin Ratio 1.6 (1.0-2.8); Alkaline Phosphatase 53 U/L (38-126); Aspartate Aminotransferase 31 IU/L (17-59); BUN Creatinine Ratio 18.8 (6-22); Bilirubin Total 0.4 mg/dL (0.2-1.3); Blood Urea Nitrogen 15 mg/dL (9-20); Calcium 9.6 mg/dL (8.4-10.2); Carbon Dioxide 27 mmol/L (22-32); Chloride 103 mmol/L (98-107); Estimated Glomerular Filt Rate > 60.0 mL/min (>60); Glucose 98 mg/dL (80-110); HEMOLYSIS < 15 (0-50); Potassium 3.6 mmol/L (3.4-5.1); Sodium 140 mmol/L (137-145); Total Protein 7.7 g/dL (6.3-8.2)
== END ==
PROVIDERS: Family Provider Physician Assistant Medical; PCP Internal Medicine; Referring Provider Physician Assistant Medical; Visit Provider Physician Assistant Medical
DX: B35.1 Tinea unguium (principal)
CPT/HCPCS: 36415; 80053; 85025